=== PATIENT | male | born 1990 | race Two or more races ===

== ENCOUNTER 2016-07-14 09:05 | Emergency (ER) | payer SELFPAY ==
[~2016-07-14] VITALS: Ht 170.2 cm; Wt 59.6 kg
[~2016-07-14 09:05] MED LIST: AUGMENTIN875 MG PO
[2016-07-14 10:53] LABS: EOSINOPHIL (%) 2.8 % (0-5); EOSINOPHIL COUNT 0.3 K/uL (0-0.3); HEMATOCRIT 39.2 % (38.0-50.0); LYMPHOCYTE COUNT 1.2 K/uL (1.0-2.8); MCH 27.4 PG (29.0-34.0); MCHC 33.4 G/DL (30.0-36.0); MEAN PLAT.VOLUME 9.7 uM^3 (9.0-12.4); MONOCYTE (%) 5.3 % (3-12); MONOCYTE COUNT 0.5 K/uL (0-0.8); NEUTROPHIL (%) 78.6 % (45-76); NEUTROPHIL COUNT 6.9 K/uL (1.8-6.4); PLATELET COUNT 292 K/uL (156-360); RBC DIS.WIDTH-SD 38.1 % (39-53); RED BLOOD COUNT 4.78 M/uL (4.00-5.50); WHITE BLOOD COUNT 8.8 K/uL (4.1-10.2)
[2016-07-14 11:03] LABS: CHLORIDE 108 mEq/L (99-109); POTASSIUM 3.6 mEq/L (3.7-5.4); SODIUM 142 mEq/L (136-147)
[2016-07-14 11:05] LABS: GLUCOSE 81 mg/dL (70-99)
[2016-07-14 11:07] LABS: ANION GAP 9 MEQ/L (2-14); TOTAL BILIRUBIN 0.4 mg/dL (0.0-1.0)
[2016-07-14 11:09] LABS: ALKALINE PHOSPHATASE 168 IU/L (3-129); GFR ESTIMATE (CALCULATED) > 59 mL/min/
[2016-07-14 11:10] LABS: UREA NITROGEN (BUN) 15 mg/dL (9-23)
[2016-07-14 14:12] VITALS: BP 119/76
[2016-07-14] MEDS ORDERED: AUGMENTIN875 MG PO (14:38)
== END 2016-07-14 15:53 | disposition home or self-care (01) ==
LOC: EME 09:05
PROVIDERS: Physician Assistant
DX: R59.0 Localized enlarged lymph nodes (principal)
CPT/HCPCS: 70491; 71020; 80053; 83605; 85025; 86480 90; 87040; 99281; 99284; J3010; J7120

== ENCOUNTER → 2016-07-17 | Outpatient (CLI) | payer SELFPAY ==
[2016-07-17 09:06] LABS: PROTHROMBIN TIME 10.6 (9.2-11.2); PTT 25.4 (25-32)
== END | disposition home or self-care (01) ==
LOC: EDSTATUS 08:00 → OPR 08:00
PROVIDERS: Radiology Diagnostic Radiology
PROC: 07B13ZX Excision of Right Neck Lymphatic, Percutaneous Approach, Diagnostic (ICD-10-PCS; principal; 2016-07-17)
DX: R59.0 Localized enlarged lymph nodes (principal)
CPT/HCPCS: 76942; 85610; 85730; 87070; 87075; 87102; 87116; 87205; 87206; 88305; 88341 TC; 88342 TC